=== PATIENT | female | born 1995 | race Caucasian/White ===

== ENCOUNTER → 2019-03-05 | Outpatient (CLI) | payer OTHER ==
--- NOTE | 2019-03-05 15:09 | US ---
EXAMINATION TYPE: US extremity nonvasculr ltd LT DATE OF EXAM: 03/05/2019 COMPARISON: CLINICAL HISTORY: M25.562 PAIN IN LT KNEE. Pain in left knee. Left posterior knee scanned. No prominent masses or fluid collections visualized. Contralateral skylar ge taken. IMPRESSION: 1. No suspicious popliteal cyst. 2. No suspicious masses by ultrasound.
== END | disposition home or self-care (01) ==
LOC: RADUSWWP 13:58
PROVIDERS: ATTEND Family Medicine
DX: M25.562 Pain in left knee (principal)